=== PATIENT | male | born 1960 | race Caucasian/White ===

== ENCOUNTER 2020-08-01 07:33 | Emergency (ER) | payer OTHER ==
[~2020-08-01] VITALS: Ht 177.8 cm; Wt 110.0 kg
--- NOTE | 2020-08-01 07:52 | PHYS DOC ---
Past Medical History Past Medical History: Hypertension General Adult EDM: Chief Complaint: SHOULDER INJURY HPI: HPI: 59-year-old gixyb-zaga-ftzmwqjo male, with history of hypertension, who presents for evaluation of left shoulder pain and deformity status post mechanical fall over a pallet just prior to arrival. No head injury or LOC. No anticoagulants or antiplatelet use. No other areas of pain noted. Pain is worsened with movement, improved with rest. Review of Systems: Review of Systems: Gen: No fever, chills. Eyes: No blurred vision, diplopia. ENT: No facial pain, epistaxis. CV: No CP, syncope. Resp. No SOB, cough. GI: No abd pain, N/V. : No perineal pain, hematuria. Neuro: No JOYCE, dizziness, weakness. MSK: No back pain. Reports arthralgia. Skin: No acute rash or lesion. Heart Score: Risk Factors: Risk Factors: DM, Current or recent (<one month) smoker, HTN, HLP, family history of CAD, obesity. Risk Scores: Score 0 - 3: 2.5% MACE over next 6 weeks - Discharge Home Score 4 - 6: 20.3% MACE over next 6 weeks - Admit for Clinical Observation Score 7 - 10: 72.7% MACE over next 6 weeks - Early Invasive Strategies Allergies: Allergies: Allergies Coded Allergies Type Severity Reaction Last Updated Verified No Known Drug Allergies 08/01/20 No Physical Exam: PE: Gen: NAD. Well nourished. Head: NC/AT. Eyes: No scleral icterus. No conjunctival injection. PERRL. ENT: MMM. Posterior OP clear. No epistaxis or septal hematoma. Neck: Supple. NT. CV: RRR. Peripheral pulses intact. Resp: CTAB. Chest: No anterior chest wall TTP. Symmetric chest rise. Abd: Soft. NT. ND. MSK: No peripheral cyanosis. No edema. Deep sulcus sign left shoulder with nonfocal tenderness. Distal left upper extremity neurovascular intact. Back: No midline spinal TTP or stepoffs. Neuro: A&Ox3. Strength & sensation grossly intact throughout. GCS 15. Skin. Warm. Dry. Psych: Appropriate mood & affect. EKG: EKG: [] Radiology/Procedures: Radiology/Procedures: SHOULDER 2+V LEFT 08/01/2020 7:48 AM INDICATION: Left shoulder pain COMPARISON: None available. TECHNIQUE: 2 views the left shoulder are provided. FINDINGS/ IMPRESSION: 1. There is anterior inferior dislocation of the glenohumeral joint. No acute fracture is visualized although postreduction films would be of benefit. Glenoid appears intact. Adjacent ribs are intact. 2. 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 Electronically signed by: Trixie Staples MD (08/01/2020 8:10 AM) [id number] Course & Med Decision Making: Course & Med Decision Making Pertinent Labs and Imaging studies reviewed. (See chart for details) In summary, 59-year-old yxgry-[id number]-ijxbaufk male, who presents for evaluation of left shoulder pain status post mechanical fall, found to have a left shoulder dislocation, now status post reduction with awake technique. Placed in immobilizer. Will be discharged home with outpatient orthopedics follow-up. Return precautions given. Dragon Disclaimer: Dragon Disclaimer: This electronic medical record was generated, in whole or in part, using a voice recognition dictation system. Departure Departure Impression: Primary Impression: Dislocation of left shoulder joint Disposition: 01 HOME, SELF-CARE Condition: STABLE Referrals: ANNEMARIE CONCEPCION MD Patient Instructions: Shoulder Dislocation Additional Instructions: Please follow up with the orthopedic surgeon above, or the orthopedic surgeon of your choice. Scripts Cyclobenzaprine Hcl (CYCLOBENZAPRINE HCL) 10 Mg Tablet 1 TAB PO TID, #30 TAB Prov: CARMIAN FERNANDEZ DO 08/01/20 Justicifation of Admission Dx: Justifications for Admission: Justification of Admission Dx: N/A CARMINA FERNANDEZ DO Aug 01, 2020 07:52
[2020-08-01] MEDS ORDERED: fentaNYL PF VIAL 100 MCG/2 ML VIAL IVP ONE (08:00)
[2020-08-01] MEDS ORDERED: MIDAZOLAM HCL/PF 5 MG/5 ML VIAL. IV ONE (08:00)
--- NOTE | 2020-08-01 08:13 | RAD ---
SHOULDER 2+V LEFT 08/01/2020 7:48 AM INDICATION: Left shoulder pain COMPARISON: None available. TECHNIQUE: 2 views the left shoulder are provided. FINDINGS/ IMPRESSION: 1. There is anterior inferior dislocation of the glenohumeral joint. No acute fracture is visualized although postreduction films would be of benefit. Glenoid appears intact. Adjacent ribs are intact. 2. 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 Electronically signed by: Trixie Staples MD (08/01/2020 8:10 AM) [id number]
[2020-08-01] MEDS ORDERED: CYCL10TA2 PO (08:44)
--- NOTE | 2020-08-01 08:48 | RAD ---
Examination: 2 views of the left shoulder HISTORY: History of postreduction COMPARISON: 08/01/2020 FINDINGS: The humerus head is within the glenoid. Interval reduction of anterior shoulder dislocation. Moderate joint space loss identified in the glenohumeral joint, acromioclavicular joint likely degenerative changes. IMPRESSION: 1. Interval reduction of anterior shoulder dislocation. Electronically signed by: Dannie Stapleton MD (08/01/2020 8:45 AM) [id number]
[2020-08-01 09:15] VITALS: BP 132/74
== END 2020-08-01 09:35 | disposition home or self-care (01) ==
LOC: ER 07:33
DX: S43.085A Other dislocation of left shoulder joint, initial encounter (principal); R20.2 Paresthesia of skin; I10 Essential (primary) hypertension; W18.39XA Other fall on same level, initial encounter; Y93.89 Activity, other specified; Y92.89 Other specified places as the place of occurrence of the external cause; Y99.8 Other external cause status
CPT/HCPCS: 23650; 73030; 96374; 96375; 99284; J2250; J3010; A4565